=== PATIENT | male | born 1950 | race Hispanic/Latino ===

== ENCOUNTER 2018-01-23 09:29 | Day surgery (SDC) | payer MEDICARE, BC ==
[2018-01-18 13:54] VITALS: BMI 29.8
[2018-01-23] MEDS ORDERED: Iohexol 240 (50 ml) ONE (10:15)
[2018-01-23] MEDS ORDERED: cefTRIAXone IV 1 gm in Dextros 50 ML IVPB ONE (10:15)
[2018-01-23] MEDS ORDERED: Propofol 10 mg/ml Inj (20 ML) ONE (10:30)
[2018-01-23] MEDS ORDERED: ePHEDrine 50 mg/ml Inj ONE (11:06)
[2018-01-23] MEDS ORDERED: Phenylephrine 10 mg/ml Inj ONE (11:06)
[2018-01-23] MEDS ORDERED: HYDROmorphone 0.5 mg/0.5 ml ISec IVP PRN (11:30)
--- NOTE | 2018-01-23 11:51 | PCM.SURG1 ---
Surgeon's Initial Post Op Note - Surgeon's Notes Surgeon: Dakota Brandt Drywaller: none Type of Anesthesia: General LMA Pre-Operative Diagnosis: hematuria Operative Findings: same, bph Post-Operative Diagnosis: same Operation Performed: cysto. bilat rtg pyelogram. TURP Specimen/Specimens Removed: urine. prostate Estimated Blood Loss: EBL {In ML}: 5 Blood Products Given: N/A Post-Op Condition: Good Date of Surgery/Procedure: 01/23/18 Time of Surgery/Procedure: 11:30
[2018-01-23 13:46] VITALS: RESP 18; O2SAT 96
[2018-01-23 13:48] VITALS: BP 134/88; PULSE 86; TEMP 97.8
--- NOTE | 2018-01-23 17:34 | RAD ---
Date of service: 01/23/2018 PROCEDURE: Intraoperative Fluoroscopy. HISTORY: HEMATURIA FINDINGS: Fluoroscopic assistance was provided for bilateral retrograde study. Please refer to the operative report from Dr. SON, [place]. Total fluoroscopic time (continuous mode) utilized during the procedure 15.3 (seconds). Dose report: DLP 0.357 (mGy/ m2):
--- NOTE | 2018-01-24 15:59 | RAD ---
Date of service: 01/23/2018 HISTORY: HEMATURIA COMPARISON: No prior. FINDINGS: BOWEL: Normal. No obstruction. No free air. BONES: Normal. OTHER FINDINGS: None. IMPRESSION: No active disease.
--- NOTE | 2018-01-24 21:01 | OP ---
Copied To: Mary Ann Brandt MD Attending MD: Mary Ann Brandt MD PROCEDURE DATE: 01/23/2018 PREOPERATIVE DIAGNOSES: Hematuria. Benign prostatic hypertrophy. Prostatic inflammation, bleeding prostate. POSTOPERATIVE DIAGNOSES: Hematuria. Benign prostatic hypertrophy. Prostatic inflammation bleeding prostate. PROCEDURES: Cystoscopy. Bilateral retrograde ureteral pyelogram. Transurethral resection of the prostate. SURGEON: Mray Ann Brandt MD Procedure was performed under video endoscopic control as well as under fluoroscopic control. The patient received perioperative antibiotics. The patient was placed in the lithotomy position. Genitalia prepped and draped sterilely. Anesthesia was provided by the anesthesiologist. A 22-Estonian cystoscope sheath was introduced under direct vision. Urethra, prostate and bladder were inspected with 30-degree, and subsequently, 70-degree lenses. FINDINGS: There was no stricture in the anterior urethra. There was evidence of previous prostatic resection. There was moderate inflammatory tissue as well as a clot located on the right floor of the prostate. There was no bladder neck contraction. Prostatic urethra was nonocclusive. There was abnormal nonhealing tissue on the floor and lateral lobes of the prostate as well. The bladder was inspected. There was no bladder tumor. There was no bladder stone. The ureteral orifices were intact bilaterally. There was no bladder diverticulum. Occlusive tip retrograde ureteropyelogram was performed. Iodinated contrast dye was instilled via cone-tip catheter into each ureteral orifice. The kidneys and ureters were viewed sequentially. The retrograde pyelogram demonstrated no evidence of filling defect or obstruction within the ureters or collecting systems. The bladder was reinspected with 70-degree lens and confirmed the above findings. The cystoscope and sheath were removed. A 26-Estonian continuous flow resectoscope sheath was introduced under direct vision using the visual obturator. The resectoscope was inserted. The area of the abnormal prostatic tissue was resected. This predominately involved the right lobe although also involved some areas of the left lobe as well on the floor. The veru was identified and was intact and was spared throughout the resection. Hemostasis was achieved during the resection. The prostatic chips were removed using the [employer] evacuator. The bladder was reinspected. The prostatic urethra was reinspected. There were no residual prostatic chips. There was no bleeding noted. The ureteral orifices were intact. The veru was intact. The resectoscope and sheath removed. Del Cid catheter was inserted. Bladder drainage was clear. The patient tolerated the procedure without complication. Mary Ann Brandt MD
== END 2018-01-23 13:55 | disposition home or self-care (01) ==
LOC: C.SDS 09:29
PROVIDERS: ATTEND Urology
DX: N40.0 Benign prostatic hyperplasia without lower urinary tract symptoms (principal); R31.0 Gross hematuria; E11.9 Type 2 diabetes mellitus without complications; I10 Essential (primary) hypertension; N41.9 Inflammatory disease of prostate, unspecified
CPT/HCPCS: 52630; 74018; 82948; 87086; 88305; A4322; J0696